=== PATIENT | female | born 1970 | race Caucasian/White ===

== ENCOUNTER 2019-09-24 08:01 | Outpatient (CLI) | payer OTHER, SELFPAY ==
--- NOTE | ~2019-09-24 | MMUS_ITS ---
EXAMINATION: MM diagnostic jack BI w michael, US breast LT limited HISTORY: Palpable upper outer quadrant left breast mass TECHNIQUE: ML, MLO and cc full field bilateral 3-D tomosynthesis images and additional spot Tomosynth esis left ML, MLO and cc Tomosynthesis images were performed and synthetic 2-D images were generated. CAD analysis was submitted and interpreted. High resolution upper outer quadrant left breast ultraso und was performed. COMPARISON: 03/17/2018 bilateral digital screening mammogram 02/19/2017 diagnostic left digital mammogram and limited left breast ultrasound 02/17/2017 bilateral digital screening mammogram BREAST PARENCHYMAL COMPOSITION: The breasts are heterogeneously dense, which may obscure small masses . FINDINGS: MAMMOGRAPHIC FINDINGS: Approximately 14 mm and 7 mm masses are identified in the upper outer quadrant left breast. These ubaldo ear relatively circumscribed. Sonographic correlation was obtained. Otherwise no suspicious mass, architectural distortion, malignant calcification, skin thickening or r etraction or significant new or developing density of either breast is detected. ULTRASOUND: 12:00 6 cm from nipple: 11 x 19 x 17 mm simple cyst with through transmission and posterior enhanceme nt 1:00 3 cm from nipple: 7 x 8.6 cm simple cyst with through transmission and posterior enhancement 1:00 subareolar area: 3.5 x 5.6 x 7 mm simple cyst 2:00 8 cm from nipple: 2.3 x 3.7 x 3.5 mm simple cyst 2:00 6 cm from nipple: There are 2 contiguous cysts measuring 4 x 6 mm and 3 x 3 mm. No suspicious mass or shadowing is evident. IMPRESSION: 1. Left breast simple cysts; no evidence of malignancy 2. Routine mammographic screening follow-up is recommended BI-RADS Category 2: Benign findings Reviewed, dictated and finalized at location A. NESS CONTINUITY SPECIALIST IMPRESSION: 1. Left breast simple cysts; no evidence of malignancy 2. Routine mammographic screening follow-up is recommended BI-RADS Category 2: Benign findings
== END 2019-09-24 08:02 ==
PROVIDERS: Visit Provider Obstetrics & Gynecology
DX: N63.20 Unspecified lump in the left breast, unspecified quadrant (principal); N60.02 Solitary cyst of left breast
CPT/HCPCS: 76642; 77062; 77066; G0279

== ENCOUNTER → 2021-07-25 12:33 | Outpatient (CLI) | payer BC, SELFPAY ==
--- NOTE | ~2021-07-25 | MM_ITS ---
EXAMINATION: MM screening jack BI w michael HISTORY: Screening mammogram TECHNIQUE: Craniocaudal and mediolateral oblique 3-D tomosynthesis images were obtained and synthetic 2-D images were generated. CAD analysis was submitted and interpreted. COMPARISON: 09/24/2019 bilateral diagnostic mammography and limited left breast ultrasound examination 03/17/2018 bilateral screening mammogram BREAST PARENCHYMAL COMPOSITION: The breasts are heterogeneously dense, which may obscure small masses . FINDINGS: Bilateral circumscribed breast masses are suggested, measuring up to 6 mm on the right and 7.5 mm on the left. Diagnostic bilateral mammogram and bilateral breast ultrasound examination are re commended. IMPRESSION: 1. Bilateral circumscribed breast masses 2. Bilateral diagnostic mammography and breast ultrasound examination are recommended. BI-RADS Category 0: Incomplete: Needs additional imaging evaluation. Reviewed, dictated and finalized at location A. OBIOLOGY DIRECTOR IMPRESSION: 1. Bilateral circumscribed breast masses 2. Bilateral diagnostic mammography and breast ultrasound examination are recom mended. BI-RADS Category 0: Incomplete: Needs additional imaging evaluation.
== END ==
PROVIDERS: Visit Provider Obstetrics & Gynecology
DX: Z12.31 Encounter for screening mammogram for malignant neoplasm of breast (principal); R92.8 Other abnormal and inconclusive findings on diagnostic imaging of breast
CPT/HCPCS: 77063; 77067

== ENCOUNTER 2022-01-04 11:12 | Outpatient (CLI) | payer BC, SELFPAY ==
--- NOTE | ~2022-01-04 | DEXA_ITS ---
Bone Density Report Name: CHIQUIS URRUTIA Age: 51 Sex: Female Ethnicity: White Date of : 1970 Indication: postmenopausal; screening for osteoporosis; height loss; Referring Provider: LIU EDWARD Study: Bone densitometry was performed. Exam Date: January 04, 2022 Accession number: [id number] Bone Density: Region BMD T-score Z-score Classification AP Spine (L1-L4) 0.788 -2.4 -1.4 Osteopenia Femoral Neck (Left) 0.664 -1.7 -0.7 Osteopenia Total Hip (Left) 0.770 -1.4 -0.8 Osteopenia Femoral Neck (Right) 0.698 -1.4 -0.4 Osteopenia Total Hip (Right) 0.769 -1.4 -0.8 Osteopenia Total Hip Mean 0.770 -1.4 -0.8 Osteopenia World Health Organization criteria for BMD impression classify patients as: Normal (T-score at or above -1.0), Osteopenia (T-score between -1.0 and -2.5), or Osteoporosis (T-score at or below -2.5). 10-year Fracture Risk(1): Major Osteoporotic Fracture 5.7% Hip Fracture 0.5% Reported Risk Factors: [place] (), Neck BMD=0.664, BMI=23.2 (1) FRAX(R) Version 3.08. Fracture probability calculated for an untreated patient. Fracture probability may be lower if the patient has received treatment. Clinical Information Provided by Patient: Has used the following medications: Vitamin D Patient maximum height was 62 Menopause Age: 50 Drinks caffeinated beverages Onset of menses at age 12 Number of children 3 Impression: The patient has low bone mass, based on the Total Spine T-score. The patient has an estimated ten-year risk of hip fracture of 0.5% and an estimated ten-year risk of major fracture of 5.7%, based on the WHO FRAX algorithm. Discussion: BONE DENSITY IS LOW AT ONE OR MORE SKELETAL SITES. This patient's lowest T-score is low at one or more skeletal sites. It meets the World Health Organization's (WHO) criteria for ?low bone mass? (T-score between -1.0 and -2.5). The patient's 10-year risk of fracture as calculated by FRAX is less than the threshold where pharmacological therapy is recommended by the National Osteoporosis Foundation (NOF). However, all treatment decisions require clinical judgment and consideration of individual patient factors, including patient preferences, comorbidities, previous drug use, risk factors not captured in the FRAX model (e.g., frailty, falls, vitamin D deficiency, increased bone turnover, interval significant decline in bone density) and possible under or overestimation of fracture risk by FRAX. The patient should follow a healthful lifestyle (good nutrition with adequate calcium and vitamin D, and appropriate weight-bearing exercise). Follow-Up: Consider repeating this study in 2 to 3 years to reassess this patient's status, or sooner if there is some new clinical indication. Reported by: VERA on 01/04/2022 11:30:00 AM.
== END 2022-01-04 11:13 ==
LOC: MICIMG 11:13
PROVIDERS: PCP Family Medicine; Visit Provider Obstetrics & Gynecology
DX: Z78.0 Asymptomatic menopausal state (principal)
CPT/HCPCS: 77080

== ENCOUNTER 2023-11-18 15:19 | Outpatient (CLI) | payer BC, SELFPAY ==
--- NOTE | ~2023-11-18 | US_ITS ---
EXAMINATION: US pelvic complete w TV DATE: 11/18/2023 15:52 INDICATION: Postmenopausal bleeding Comparison:No prior studies for comparison. TECHNIQUE: Multiple transabdominal and endovaginal sonographic images of the pelvis performed. FINDINGS: The uterus measures 7.4 x 4.4 x 3.4 cm. The endometrial complex measures 5 mm. The right ovary is not visualized due to overlying bowel. Left ovary is unremarkable measuring 2.2 x 1.3 x 1.2 cm. There is trace free fluid in the pelvis. There are no abnormal masses seen on either side. IMPRESSION: 1. Thickened endomtrial complex. The differential diagnosis includes endometrial hyperplasia, polyp a nd carcinoma. Biopsy is recommended. Reviewed, dictated and finalized at location A. IMPRESSION: 1. Thickened endomtrial complex. The differential diagnosis includes endometria l hyperplasia, polyp and carcinoma. Biopsy is recommended.
== END 2023-11-18 15:20 ==
PROVIDERS: PCP Obstetrics & Gynecology; Visit Provider Obstetrics & Gynecology
DX: N95.0 Postmenopausal bleeding (principal)
CPT/HCPCS: 76830; 76856

== ENCOUNTER 2024-01-01 00:23 | Day surgery (SDC) | payer BC, SELFPAY ==
[2023-12-25 13:10] VITALS: BMI 21.9
--- NOTE | 2023-12-25 13:16 | PC.NURSE ---
Report to the Outpatient Waiting Room, entrance under the green pavilion located off [facility], at time _0900_ on date _[id number]_. Planned Procedure Time: _1100_. Time changes happen often and if your time is changed the preop area will call you the afternoon before. - You and your visitor will be asked to self-screen and do not enter if you have any COVID symptoms. - A mask is optional within the hospital at this time. Patients may have clear liquids (water, carbonated beverages, clear teas, apple juice) until 3 hours prior to surgery with a maximum of 20 ounces. - No food from midnight until time of surgery Take the following medications with a SIP of water the morning of surgery: __None DO NOT STOP ANY OF YOUR OTHER PRESCRIPTION MEDICATIONS PRIOR TO SURGERY ?EXCEPT THE FOLLOWING Medications to discontinue per physician All vitamins and supplements Date to take last [id number] Please no make-up, nail ugandan, hairspray, perfume, deodorant, or body powder the day of surgery. No jewelry (including any body piercings) or valuables the day of surgery, leave them at home. Please take a shower or bath the night before, or the morning of, surgery with an antibacterial soap. Wear comfortable, loose fitting clothing. - Jewelry must be removed prior to entering the operating room. Rings and piercings that are not removed may be cut off. - The hospital will not accept responsibility for valuables. - Please leave all valuables, including medications, at home the day of surgery. If you are going home after surgery, a licensed double bottom driver must drive you home. - NO public transportation without another adult if you receive anesthesia. - We recommend that an adult stay with you for 24 hours following discharge. - We also recommend that you do not drive, make important decision, drink alcoholic beverages, or take any drugs that were not prescribed by your health care provider for at least 24 hours after your discharge time. Follow any additional instructions given to you from your surgeon. If you or anyone in your household have experienced Covid symptoms in the past week, please notify your surgeon or the nurse liaison at the phone number below for possible testing. Telephone instructions given to __Maria____and asked if any additional questions and then verbalized understanding. Patient advised to call surgeon office or pre surgery nurse liaison [phone] if any additional questions.
[2024-01-01 09:30] VITALS: BP 119/81; PULSE 60; RESP 14; TEMP 36.9; O2SAT 100
[2024-01-01] MEDS: LACTATED RINGERS 1,000 ML 30 ML IV CONT (09:30)
[2024-01-01] MEDS: ACETAMINOPHEN 500 MG TABLET 1000 MG PO (09:30)
--- NOTE | 2024-01-01 10:42 | WPDANESEPPF ---
Anes - Initial Pre Proc Eval Procedure: Operation Date: 01/01/24 11:00 Proposed Procedures p Hysteroscopy Dilation and Curettage with Polypectomy - Jordin Alaniz MD Date/Time: 01/01/24 10:42 Surgeon: Jordin Alaniz MD Pre Op Diagnosis: Post Menopasual Bleeding, Cervical Polyp Patient Data Age: 53 Gender: F Height: 1.57 m Weight: 56.2 kg Last Vital Signs Temp 98.4 F 01/01/24 09:30 Pulse 60 01/01/24 09:30 Resp 14 01/01/24 09:30 BP 119/81 01/01/24 09:30 Pulse Ox 100 01/01/24 09:30 O2 Del Method Room Air 01/01/24 09:30 Allergies Allergy/AdvReac Type Severity Reaction Status Date / Time Penicillins Allergy Intermediate Rash Verified 01/01/24 09:35 latex Allergy Mild Rash Verified 01/01/24 09:35 Home Medications Medication Instructions Recorded Confirmed Type biotin 500 mcg capsule 5 mg PO DAILY 12/25/23 12/25/23 History calcium 500 mg tablet 500 mg PO DAILY 12/25/23 12/25/23 History cholecalciferol (vitamin D3) 25 25 mcg PO DAILY 12/25/23 12/25/23 History mcg (1,000 unit) capsule (Vitamin D3) citalopram 10 mg tablet 10 mg PO QPM 12/25/23 12/25/23 History estradiol-norethindrone acet 1 1 tablet PO QAM 12/25/23 12/25/23 History mg-0.5 mg tablet magnesium 250 mg tablet 250 mg PO DAILY 12/25/23 12/25/23 History vitamin B complex 1 tablet PO DAILY 12/25/23 12/25/23 History Patient hx anesthesia problems: none Family hx anesthesia problems: none Results Review: All pre-operative results and documents have been reviewed as part of the pre-operative evaluation. [facility] Family History Family History Other Asthma Cerebrovascular accident Social History Social History Smoking status: Never smoker Alcohol intake: current Drinks per week: 7 Living arrangements: with family Anes - Eval Final PreProcedure Day of Procedure 01/01/24 10:42 Patient weight: normal Heart: regular rate and rhythm Lungs: clear to auscultation Airway: Mallampati scale and special considerations (Missing L lower tooth in rear aspect. ) Neurological: alert and oriented Last oral intake: >/= 8 hours ASA classification: II Emergent: no Anesthetic plan: proceed Anesthesia type and monitoring: general GIVS and standard monitoring Results Review: All pre-operative results and documents have been reviewed as part of the pre-operative evaluation. Informed Consent: The patient's anesthetic plan and its attendant risks and benefits were discussed with the patient/family/POA. Questions were solicited and answers provided to the satisfaction of the patient/family/POA.
--- NOTE | 2024-01-01 11:27 | PM.IMHP ---
H&P: HPI History of Present Illness Date/Time: 01/01/24 11:27 Chief Complaint: Postmenopausal bleeding Narrative: 53 y/o with postmenopausal vaginal bleeding. There was a small cervical polyp we removed in the office, with benign pathology. Ultrasound subsequently shows a 5mm thick endometrial complex. Review of Systems Review of Systems: All systems reviewed & are unremarkable except as noted in HPI and below PMFSH Family History Family History Other Asthma Cerebrovascular accident Social History Social History Smoking status: Never smoker Alcohol intake: current Drinks per week: 7 Living arrangements: with family Meds Home Medications and Allergies Home Medications Medication Instructions Recorded Confirmed Type biotin 500 mcg capsule 5 mg PO DAILY 12/25/23 12/25/23 History calcium 500 mg tablet 500 mg PO DAILY 12/25/23 12/25/23 History cholecalciferol (vitamin D3) 25 25 mcg PO DAILY 12/25/23 12/25/23 History mcg (1,000 unit) capsule (Vitamin D3) citalopram 10 mg tablet 10 mg PO QPM 12/25/23 12/25/23 History estradiol-norethindrone acet 1 1 tablet PO QAM 12/25/23 12/25/23 History mg-0.5 mg tablet magnesium 250 mg tablet 250 mg PO DAILY 12/25/23 12/25/23 History vitamin B complex 1 tablet PO DAILY 12/25/23 12/25/23 History Allergies Allergy/AdvReac Type Severity Reaction Status Date / Time Penicillins Allergy Intermediate Rash Verified 01/01/24 09:35 latex Allergy Mild Rash Verified 01/01/24 09:35 Vital Signs Vital Signs - 24 hr 01/01/24 09:30 Temperature 36.9 C Pulse Rate 60 Respiratory Rate 14 Blood Pressure 119/81 Pulse Oximetry 100 Oxygen Delivery Room Air Exam Const: Orientation/consciousness: patient oriented x3 Other: Well-developed, well-nourished female in no acute distress. Neck: Thyroid: thyroid normal Lymphatic: no lymphadenopathy noted (in neck, axilla or inguinal nodes) Resp: Effort & Inspection: normal respiratory effort Auscultation: clear to auscultation bilaterally Cardio: Rate: regular rate Rhythm: regular rhythm Heart sounds: S1 normal heart sound present and S2 normal heart sound present GI: Other: ABD: Soft, nontender, nondistended. No guarding or rebound tenderness. No hepatosplenomegaly. : General: Yes no CVA tenderness Other: External genitalia: normal female hair distribution, without lesion. Urethral meatus: no lesion, non prolapsed. Bladder: no mass, nontender Vagina: well-estrogenized, without lesion or discharge. No cystocele or rectocele. Cervix: no lesion or discharge. Uterus: small, anteverted, freely mobile, nontender Adnexa: no mass or tenderness. Anus/perineum: no lesions, nontender Back/Spine/Pelvis: Back: no CVA tenderness Skin: General skin exam: normal color and no rashes or lesions noted Neuro: General: patient oriented x3 Extrem: Other: Extremities: nontender with no edema Psych: Mental Status: mental status grossly normal Affect: normal affect Assessment and Plan Assessment and plan (1) Postmenopausal vaginal bleeding: Code(s): N95.0 - Postmenopausal bleeding Status: Acute Assessment and Plan: A: Postmenopausal bleeding with a thickened endometrial stripe. P: Offered hysteroscopy with dilation and sharp curettage and possible endometrial polypectomy. She understands risks of surgery to include risks of anesthesia, risks of pain, infection, bleeding, blood products, thromboembolic phenomena and damage to adjacent structures such as bowel, bladder, ureters, blood vessels and nerves. She understands all these risks and elects to proceed with surgery. (2) Abnormal pelvic ultrasound: Code(s): R93.89 - Abnormal findings on diagnostic imaging of other specified body structures Status: Acute
--- NOTE | 2024-01-01 11:30 | WPDHPUPDATE1 ---
History and Physical Update Update Date/Time: 01/01/24 11:30 History and Physical has been reviewed, including an updated exam of the patient. There are NO changes in the patient's condition. Risks, benefits, and alternatives have been discussed and questions answered. Patient agrees to proceed with procedure.
[2024-01-01] MEDS: LIDOCAINE HCL 1% PF INJ 5 ML VIAL 10 ML INFILTRATE (11:58)
[2024-01-01 12:05] VITALS: BP 120/74; PULSE 70; RESP 14; O2SAT 98
--- NOTE | 2024-01-01 12:06 | W.PM.PROC2 ---
Procedure Note - Detailed Date of Procedure 01/01/24 Pre-op Diagnosis Postmenopausal Bleeding Abnormal pelvic ultrasound Post-op Diagnosis Same Procedure Performed Hysteroscopy Dilation and sharp curettage Surgeon Jordin Alaniz MD Anesthesia MAC and Local (1% lidocaine) Findings Unremarkable endometrial cavity. Both tubal ostia seen. Description of Procedure The patient was taken to the operating room where she was prepared and draped in the usual sterile fashion in the dorsal lithotomy position. The bladder was drained with a red rubber catheter. A sterile speculum was placed into the vagina. The anterior lip of the cervix was grasped with single-tooth tenaculum. Ten mL of 1% lidocaine was administered in a paracervical block. The cervix was then gently dilated using Hegar dilators until a 7 mm dilator could be passed. Hysteroscopy was performed using sterile saline as a distention medium. Findings are as noted above. Sharp curettage was then performed, and endometrial curettings were collected on a Telfa pad and passed off to be sent to pathology. A laceration at the tenaculum site was reapproximated with a single figure of eight suture of 3-0 Vicryl. Hemostasis was excellent. Sponge, lap, needle and instrument counts were correct. The patient was awakened and taken to the recovery room in stable condition. I was present and scrubbed through the entire procedure. Implants None Estimated Blood Loss 5 Drains No Packing No Pathology Yes (Endometrial curettings) Complications None Condition Stable Disposition PACU
[2024-01-01 12:27] VITALS: BP 127/76; PULSE 62; RESP 16; O2SAT 98
[2024-01-01 12:45] VITALS: BP 137/75; PULSE 52; RESP 16; O2SAT 98
== END 2024-01-01 13:00 | disposition home or self-care (01) ==
PROVIDERS: PCP Physician Assistant; Visit Provider Obstetrics & Gynecology
PROC: 0U5B8ZZ Destruction of Endometrium, Via Natural or Artificial Opening Endoscopic (ICD-10-PCS; CPT 58563; principal; 2024-01-01 11:00)
DX: N95.0 Postmenopausal bleeding (principal)
CPT/HCPCS: 58558; 88305; A9270; J2250; J2704; J3010; J7120

== ENCOUNTER 2024-04-26 11:51 | Outpatient (CLI) | payer BC, SELFPAY ==
--- NOTE | ~2024-04-26 | DEXA_ITS ---
Bone Density Report Name: CHIQUIS URRUTIA Age: 54 Sex: Female Ethnicity: White Date of : 1970 Indication: postmenopausal; screening for osteoporosis; height loss; Referring Provider: LIU EDWARD Study: Bone densitometry was performed. Exam Date: April 26, 2024 Accession number: [id number] Bone Density: Region BMD T-score Z-score Classification AP Spine(L1-L4) 0.842 -1.9 -0.8 Osteopenia Femoral Neck (Left) 0.663 -1.7 -0.6 Osteopenia Total Hip (Left) 0.815 -1.0 -0.4 Normal Femoral Neck (Right) 0.724 -1.1 -0.1 Osteopenia Total Hip (Right) 0.804 -1.1 -0.5 Osteopenia Total Hip Mean 0.809 -1.1 -0.5 Osteopenia World Health Organization criteria for BMD impression classify patients as: Normal (T-score at or above -1.0), Osteopenia (T-score between -1.0 and -2.5), or Osteoporosis (T-score at or below -2.5). 10-year Fracture Risk(1): Major Osteoporotic Fracture 6.8% Hip Fracture 0.6% Reported Risk Factors: [place] (), Neck BMD=0.663, BMI=24.3 (1) FRAX(R) Version 3.08. Fracture probability calculated for an untreated patient. Fracture probability may be lower if the patient has received treatment. Clinical Information Provided by Patient: Has used the following medications: Vitamin D, Calcium Patient maximum height was 62.0 Drinks caffeinated beverages Onset of menses at age 12 Number of children 3 Impression: The patient has low bone mass, based on the Total Spine T-score. The patient has an estimated ten-year risk of hip fracture of 0.6% and an estimated ten-year risk of major fracture of 6.8%, based on the WHO FRAX algorithm. Discussion: BONE DENSITY IS LOW AT ONE OR MORE SKELETAL SITES. This patient's lowest T-score is low at one or more skeletal sites. It meets the World Health Organization's (WHO) criteria for ?low bone mass? (T-score between -1.0 and -2.5). The patient's 10-year risk of fracture as calculated by FRAX is less than the threshold where pharmacological therapy is recommended by the National Osteoporosis Foundation (NOF). However, all treatment decisions require clinical judgment and consideration of individual patient factors, including patient preferences, comorbidities, previous drug use, risk factors not captured in the FRAX model (e.g., frailty, falls, vitamin D deficiency, increased bone turnover, interval significant decline in bone density) and possible under or overestimation of fracture risk by FRAX. The patient should follow a healthful lifestyle (good nutrition with adequate calcium and vitamin D, and appropriate weight-bearing exercise). Follow-Up: Consider repeating this study in 2 to 3 years to reassess this patient's status, or sooner if there is some new clinical indication. Reported by: DEEPAK on 04/26/2024 12:19:00 PM.
== END 2024-04-26 11:52 | disposition home or self-care (01) ==
LOC: ANHIMG 11:54
PROVIDERS: PCP Physician Assistant; Visit Provider Obstetrics & Gynecology
DX: Z13.820 Encounter for screening for osteoporosis (principal); M85.88 Other specified disorders of bone density and structure, other site; M85.852 Other specified disorders of bone density and structure, left thigh; M85.851 Other specified disorders of bone density and structure, right thigh
CPT/HCPCS: 77080